=== PATIENT | male | born 1990 | race Caucasian/White ===

== ENCOUNTER 2017-11-24 09:30 | Inpatient (IN) | payer OTHER ==
[~2017-11-24] VITALS: Ht 177.8 cm; Wt 81.6 kg
[2017-11-24 09:33] VITALS: BP 134/76
[2017-11-24] MEDS ORDERED: NOHOMEMEDICATIONS (09:38)
[2017-11-24 10:16] LABS: CALCIUM 8.9 mg/dL (8.5-10.1); POTASSIUM 3.8 mmol/L (3.5-5.1)
[2017-11-24 11:09] LABS: ABSOLUTE EOSINOPHILS 0.2 thou/uL (0.0-0.7); ABSOLUTE LYMPHOCYTES 2.3 thou/uL (0.8-5.3); ABSOLUTE MONOCYTES 0.6 thou/uL (0.0-1.2); ABSOLUTE NEUTROPHILS 4.5 thou/uL (1.6-8.1); BASOPHILS 0.3 %; HEMOGLOBIN 14.6 gm/dL (14.0-18.0); LYMPHOCYTES 30.2 %; MCH 29.3 pg (26.0-34.0); MONOCYTES 8.3 %; MPV 8.2 fl. (7.2-11.1); NUCLEATED RBCS 0 /100WBC; PLATELET COUNT* 238 thou/uL (150-400); POLYS 59.2 %; RDW-CV 12.9 % (10.5-14.5); WBC 7.6 thou/uL (4.0-11.0)
[2017-11-24 12:14] VITALS: BP 136/88
[2017-11-24 19:35] VITALS: BP 139/62
--- NOTE | 2017-11-24 19:48 | NUR ---
PT ALERT AND ORIENTED. DENIES NAUSEA AND PAIN UPON ARRIVAL TO UNIT. IV PATENT. WOUND VAC ATTACHED TO LEFT ARM WITH BLACK FOAM DRESSING INTACT. SWELLING NOTED IN LEFT ARM WITH ABRASIONS TO HAND. PT ABLE TO AMBULATE WITH SBA-GAIT STEADY. RECEIVED PO MEDICATION FOR PAIN. SCDS ON BILAT. VS STABLE. HOURLY ROUNDS MAINTAINED. PT WILL USE CALL LIGHT FOR ASSISTANCE. CALL LIGHT WITHIN REACH. NURSING TO CONTINUE TO MONITOR.
[2017-11-25 01:05] VITALS: BP 125/70
[2017-11-25 04:57] LABS: HEMATOCRIT 38.2 % (42.0-52.0); HEMOGLOBIN 13.3 gm/dL (14.0-18.0); MCH 29.2 pg (26.0-34.0); MCHC 34.7 g/dL (28.0-37.0); MCV 84.1 fL (80.0-100.0); MPV 8.3 fl. (7.2-11.1); NUCLEATED RBCS 0 /100WBC; PLATELET COUNT* 229 thou/uL (150-400); RBC 4.54 mil/uL (4.50-6.00); RDW-CV 12.8 % (10.5-14.5); WBC 15.5 thou/uL (4.0-11.0)
[2017-11-25 05:04] LABS: CALCIUM 8.2 mg/dL (8.5-10.1); CREATININE 0.8 mg/dL (0.6-1.3)
[2017-11-25 05:12] VITALS: BP 132/72
[2017-11-25 06:15] LABS: ABSOLUTE BASOPHILS 0.2 thou/uL (0.0-0.2); ABSOLUTE LYMPHOCYTES 0.8 thou/uL (0.8-5.3); ABSOLUTE MONOCYTES 0.9 thou/uL (0.0-1.2); ABSOLUTE NEUTROPHILS 13.6 thou/uL (1.6-8.1)
[2017-11-25 06:16] LABS: PLATELET ESTIMATE ADEQUATE
[2017-11-25 08:00] VITALS: BP 119/71
--- NOTE | 2017-11-25 13:28 | NUR ---
PT.ALERT AND ORIENTED. 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 HE GAVE PERMISSION FOR ME TO TALK IN FRONT OF HIS FRIEND. PT.SAID HE NORMALLY LIVES IN [place], [place]. CO. IS IN [place], [place]. 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 HE SAID HE SHOULD HAVE INSURANCE THROUGH HIS CO. SOON. EXPLAINED ORDERING A WOUND VAC FOR HIM TO USE WHEN DISCHARGED. IT WOULD BE DELIVERED TO THE HOSPITAL. DISCUSSED NEEDING HOME HEALTH TO SEE HIM AT HOME FOR DRESSING CHANGES. HE CHOSE [facility]. CM WILL MAKE REFERRAL TO THEM. SPOKE WITH TRUDY/HELENE.[facility]. FAXED HER INITAL INFORMATION,FACE SHEET WITH WORK COMP INFORMATION TO [phone]. THEY CAN SEE PT.ON TUESDAY. IF DISCHARGED OVER THER WEEKEND FAX FINAL ORDERS TO [phone]. NO NEED TO CALL PER TRUDY.
[2017-11-25 13:44] VITALS: BP 119/71
--- NOTE | 2017-11-25 15:40 | NUR ---
ALERT AND ORIENTED X4. UP STAND BY ASSIST IN ROOM. IV IS PATENT AND SALINE LOCKED. PAIN BEING MANAGED WITH PO PAIN MEDICATION. DENIES NAUSEA. WOUND VAC IN PLACE. VSS ON ROOM AIR. HOURLY ROUNDS HAVE BEEN MAINTAINED THROUGHOUT SHIFT. CALL LIGHT IS WITHIN REACH. NURSING WILL CONTINUE TO MONITOR.
--- NOTE | 2017-11-25 17:21 | NUR ---
SIGNED WOUND VAC FORM. FAXED FORM,FACE SHEET, H&P,OP REPORT AND PROGRESS NOTE TO [facility]. CALL FROM [facility] WOUND VAC,STATING SHE COULD NOT GET [employer] OF WORKERS COMP REP TO AUTH WOUND VAC,SO SHE REACHED OUT TO ONE OF THEIR OTHER VENDORS THAT DO ALOT OF THEIR WORKERS COMP CASES. THEY WILL DELIVER WOUND VAC TOMORROW TO PT.S ROOM. IT IS MUCH LIKE A [facility] WOUND VAC. IT IS CALLED [facility]. [facility] FOR ANY QUESTIONS IS [phone].
--- NOTE | 2017-11-25 19:09 | NUR ---
RECIEVED REPORT FROM CHAR AT 1500. AGREE WITH PREVIOUS NURSE ASSESSMENT. PAIN WELL CONTROLLED WITH PAIN MEDS. TOLERATED DIET, NO NAUSEA AND VOMITING. CALL LIGHT WITHIN REACH, WILL CONTINUE TO MONITOR.
[2017-11-25 20:30] VITALS: BP 133/68
[2017-11-26] VITALS: BP 110/66
[2017-11-26 04:20] VITALS: BP 126/64
[2017-11-26 04:22] LABS: ABSOLUTE EOSINOPHILS 0.1 thou/uL (0.0-0.7); ABSOLUTE LYMPHOCYTES 2.2 thou/uL (0.8-5.3); ABSOLUTE MONOCYTES 0.7 thou/uL (0.0-1.2); ABSOLUTE NEUTROPHILS 4.4 thou/uL (1.6-8.1); BASOPHILS 0.2 %; EOSINOPHILS 1.4 %; HEMATOCRIT 37.8 % (42.0-52.0); HEMOGLOBIN 12.9 gm/dL (14.0-18.0); LYMPHOCYTES 30.2 %; MCV 85.3 fL (80.0-100.0); MPV 7.9 fl. (7.2-11.1); NUCLEATED RBCS 0 /100WBC; PLATELET COUNT* 224 thou/uL (150-400); POLYS 59.2 %; RBC 4.43 mil/uL (4.50-6.00); RDW-CV 13.3 % (10.5-14.5); WBC 7.4 thou/uL (4.0-11.0)
--- NOTE | 2017-11-26 06:51 | NUR ---
ASSUMED PT CARE AT 2014. NURSING ASSESSMENT COMPLETED. PT VERBALIZED PAIN THIS SHIFT. SEE EMAR FOR DOCUMENTATION. WOUND VAC TO LEFT FOREARM. HOURLY ROUNDING COMPLETED. VOICED NO OTHER CONCERNS. NEGATIVE FOR SEPSIS. CALL LIGHT WITHIN REACH.
[2017-11-26 09:00] VITALS: BP 136/69
[2017-11-26 16:00] VITALS: BP 139/75
--- NOTE | 2017-11-26 18:21 | NUR ---
PAITENT REMAINED ALERT AND ORIENTED X'S 4. VITAL SIGNS AND SPO2 STABLE. PAIN WELL CONTROLLED WITH PAIN MEDS. IV CLEAN, FLUIDS INFUSING. LEFT ARM STILL SWOLLEN AND RED BUT CLEAN, DRY, AND INTACT. VOIDED AND PASSED BM WITHOUT ISSUE. TOLERATED DIET, NO NAUSEA AND VOMITING. CONSENT FOR PROCEDURE TOMORROW SIGNED AND PLACED IN CHART. COMPLETED HOURLY ROUNDING. CALL LIGHT WITHIN REACH. WILL CONTINUE TO MONITOR.
[2017-11-26 21:30] VITALS: BP 130/93
[2017-11-27 00:15] VITALS: BP 126/67
[2017-11-27 04:20] VITALS: BP 122/65
[2017-11-27 04:49] LABS: ABSOLUTE EOSINOPHILS 0.2 thou/uL (0.0-0.7); ABSOLUTE LYMPHOCYTES 2.2 thou/uL (0.8-5.3); ABSOLUTE MONOCYTES 0.7 thou/uL (0.0-1.2); ABSOLUTE NEUTROPHILS 4.1 thou/uL (1.6-8.1); BASOPHILS 0.4 %; EOSINOPHILS 2.9 %; HEMOGLOBIN 13.1 gm/dL (14.0-18.0); LYMPHOCYTES 30.2 %; MCH 29.1 pg (26.0-34.0); MCHC 34.6 g/dL (28.0-37.0); MCV 84.2 fL (80.0-100.0); MONOCYTES 10.2 %; NUCLEATED RBCS 0 /100WBC; PLATELET COUNT* 226 thou/uL (150-400); POLYS 56.3 %; RBC 4.51 mil/uL (4.50-6.00); WBC 7.3 thou/uL (4.0-11.0)
--- NOTE | 2017-11-27 07:04 | NUR ---
PATIENT HAS SLEPT WELL THROUGHOUT THE NIGHT WITHOUT ANY ISSUES. PAIN WELL CONTROLLED. MEDICATION GIVEN ORDERED AND CHARTED. VSS ON RA. DRESSING TO LEFT ARM IS C/D/I AND WOUND VAC IN PLACE. HOURLY ROUNDS MADE. WILL CONTINUE WITH PLAN OF CARE AND NURSING TO MONITOR.
[2017-11-27 07:30] VITALS: BP 119/71; BP 140/65
[2017-11-27 08:26] VITALS: BP 122/65
[2017-11-27] MEDS ORDERED: COLACE100 MG PO (16:01)
[2017-11-27] MEDS ORDERED: NORCO 5-325 TA1 EACH PO (16:02)
[2017-11-27] MEDS ORDERED: AUGMENTIN125 MG/53 PO (16:04)
--- NOTE | 2017-11-27 16:32 | NUR ---
PATIENT LEFT UNIT AT 1630 AMBULATORY. IV DC'D. EDUCATED PATIENT ON NEW MED SCRIPTS AND DISCHARGE INSTRUCTIONS. PATIENT VERBALIZED UNDERSTANDING. ALL BELONGINGS LEFT.
[2017-11-27 16:48] VITALS: BP 119/71
--- NOTE | 2017-11-28 09:06 | NUR ---
FAXED DISCHARGE SUMMARY AND OP REPORT FROM 11/27 TO NURSING INTAKE AT [facility] [phone]. THEY CALLED AND HAD NOT RECEIVED DISCHARGE ORDERS FROM 11/27.
--- NOTE | 2017-12-01 07:43 | OP ---
[address] [address] OPERATIVE REPORT Name: CHELSEA CRISOSTOMO Room: [address] IN M.R.#: [id number] Admission: 11/25/17 Attend Phys: Jazmyne Mckeon DO Discharge: 11/27/17 Date of : 88 Report #: [id number] THIS REPORT FOR: //name// CC: Jazmyne Mckeon [facility] physician/PCP DICTATED BY: Shaq Ma DO PREOPERATIVE DIAGNOSIS: Left forearm laceration. POSTOPERATIVE DIAGNOSIS: Left forearm laceration. SURGEON: Jazmyne Mckeon DO COSURGEON: Dr. Christian Ma, PGY4. ASSISTANTS: Bg Brenner, PGY-1. OPERATION: Left forearm wound irrigation with fasciotomy and wound VAC application. ANESTHESIA: General and local. ESTIMATED BLOOD LOSS: 5 mL. SPECIMENS: None. COMPLICATIONS: None. 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 The power shovel operator shot back him and caused an approximately 4 cm wound to the posterior aspect of his left forearm just distal to the elbow. He was able to move his upper extremity in the ER, but it was painful. The patient did undergo an upper extremity CTA to ensure there was no vascular injury and there was no evidence of any type of arterial injury that was identified. The patient did have significant amount of subcutaneous intramuscular emphysema along the dorsum of the proximal forearm that extended towards the radial aspect of the forearm with a large laceration and there was some trace amount of gas within the elbow joint. We recommended the patient undergo general anesthesia to have his left forearm wound irrigated and wound VAC placed. A complete description of procedure was reviewed in detail with the patient. All risks, benefits and complications were discussed at the time of surgery and he voiced complete understanding and wished to proceed. DESCRIPTION OF PROCEDURE: The patient was taken to the operating room and laid in supine position. He had SCDs placed on [place] [address] OPERATIVE REPORT Name: CHELSEA CRISOSTOMO Room: [address] [place] ..#: [id number] Admission: 11/25/17 Attend Phys: Jazmyne Mckeon DO Discharge: 11/27/17 Date of : 88 Report #: [id number] his David wrap placed across his lap. The patient received 2 g Ancef while he was in the ER, but we elected to add more broad spectrum coverage with Zosyn, so we gave him 3.375 grams of Zosyn upon arrival to the OR. All lines were placed by anesthesia. The patient's left arm was placed out and prepped and draped in a standard sterile fashion. The patient was sedated and an LMA placed by anesthesia without difficulty. A timeout was performed to correctly identify the patient and procedure. We thoroughly inspected the wound to ensure there was no debris present and none was obviously seen. We investigated the fascial compartment, there was noted to be some notable tension, so these fascial compartments which were previously opened secondary to the injury were extended inferiorly and superiorly along the anterior aspect of the forearm. This provided significant amount of decompression and release of the tension that was presented with the forearm. Then, using copious amounts of irrigation with bacitracin, we irrigated the wound thoroughly. The patient did have some degloving of the skin along the lateral aspect of his wound. All of these areas were thoroughly irrigated with the bacitracin saline solution approximately 2 liters. The muscle was tested with electrocautery to ensure that it was viable and did appear to be so. There was no gross bleeding that was occurring and there was no obvious other vascular injuries that were present. After we thoroughly irrigated the wound, we again inspected it for hemostasis and it did appear to be hemostatic. We then placed a wound VAC over the area using a silver foam and we achieved good seal with the wound VAC and the rest of the patient's forearm was inspected and he had some mild abrasions that were cleaned and bacitracin was applied. We did inject the area at the start of the case with some lidocaine local anesthetic. The patient was allowed to awaken in the operating room and was transferred to the PACU in stable condition. All counts were correct times 2 at the end of the procedure. Dr. Mckeon was present and scrubbed for the entirety of the procedure. <ELECTRONICALLY SIGNED> By: Jazmyne Mckeon DO 12/01/17 0743 [id number] Mckeon DO /wilfrido
--- NOTE | 2018-01-20 15:07 | OP ---
[address] [address] OPERATIVE REPORT Name: CHELSEA CRISOSTOMO Room: [address]#: [id number] Admission: 11/25/17 Attend Phys: Jazmyne Mckeon DO Discharge: 11/27/17 Date of : 88 Report #: [id number] THIS REPORT FOR: //name// CC: Jazmyne Mckeon [facility] physician/PCP DICTATED BY: Shaq Ma DO DATE OF SERVICE: 11/27/2017 PREOPERATIVE DIAGNOSIS: Left forearm laceration. POSTOPERATIVE DIAGNOSIS: Left forearm laceration. SURGEON: Jalil Wallace DO. COSURGEON: Christian Ma, PGY4. RESIDENT CARE AIDE: None. OPERATION PERFORMED: Left forearm wound irrigation and wound VAC exchange with partial closure. ANESTHESIA: Monitored anesthesia care with LMA. ANESTHESIA TYPE: General with LMA. ESTIMATED BLOOD LOSS: 5 mL. SPECIMEN REMOVED: None. COMPLICATIONS: None. COMMENTS: Placed 3 vertical mattress 2-0 nylon sutures along the edges of the wound for partial reapproximation. Irrigated the wound copiously with 3 liters of normal saline and removed the previously placed foam and placed a new silver GranuFoam within the wound bed. HISTORY OF PRESENT ILLNESS: The patient is a pleasant 27-year-old male who was admitted to the hospital under Surgery Service after having laceration to his left forearm while working approximately 3 days ago. At this time, the patient did have a significant laceration that was copiously irrigated and had a wound VAC placed on the same day. He was admitted to the hospital and given IV antibiotics with a plan to exchange the wound VAC today. The patient has done rather well and edema to his left forearm has been rather minimal. His pain has been decently controlled and we exchanged his wound [place] [id number] OPERATIVE REPORT Name: CHELSEA CRISOSTOMO Room: [address]#: [id number] Admission: 11/25/17 Attend Phys: Jazmyne Mckeon DO Discharge: 11/27/17 Date of : 88 Report #: [id number] wound VAC. All descriptions of the procedure were reviewed in detail with the patient. All risks, benefits, complications were also discussed at bedside this morning and the patient voiced clear understanding and wished to proceed. DESCRIPTION OF PROCEDURE: After the appropriate consents were obtained, the patient was taken to the operating room, laid in supine position. He had SCDs placed on bilateral lower extremities. A safety sharp placed across his lab. All lines were placed by Anesthesia. His left arm was placed on armboard that was out and his right arm was placed tucked at his right side. The patient was then sedated and LMA placed by Anesthesia without difficulty. He was then positioned with the left arm out on an armboard and his left arm was prepped and draped in a standard sterile fashion. The patient was given IV antibiotics approximately 06:00 this morning, so none were given in the operative time. A timeout was performed to correctly identify the patient and procedure. We started by removing the foam that was placed previously, which appeared to be intact and the wound bed appeared significantly clean with healthy tissue beneath it. There were 3 pieces of foam, they were removed in toto. The wound cavity was then explored and did not appear to have any type or signs of infection and no purulent drainage. We then copiously irrigated the wound with 3 liters of normal saline and decided to reapproximate the wound partially specifically at the edges of the wound. We placed 3 separate vertical mattress sutures for partial reapproximation and then placed a fresh piece of GranuFoam within the wound. The wound measured today at 7 x 2.5 x 1.5 cm and displayed a healthy viable muscle and tissue. We used Mastisol around the wound to actively enhance our adhesion with our dressings. We then placed a dressing over top the foam and then cut out a portion over top the Silver foam and placed a yakutat patch over this and then placed our Trac Pad with good suction and seal. We connected it to the patient's portable wound VAC and it appeared to be functioning properly. The patient's left arm was then cleaned and dried adequately and we allowed him to awake in the operating room. All counts were correct x 2 at the end of procedure. The patient tolerated the procedure very well. We will continue with IV antibiotics for today and if the patient has correct services set up as an outpatient, we could possibly discharge home later today if not likely tomorrow. Dr. Wallace was present and scrubbed the entirety of the procedure. <ELECTRONICALLY SIGNED> By: Jalil Wallace DO 01/20/18 1507 [id number] Wallace DO /nt
== END 2017-11-27 18:19 | disposition home or self-care (01) | DRG 982 ==
LOC: M.ERS 09:30 → M.SUR 09:30 → M.TBA-ER 12:07 → M.ORTHSURG 12:07 → M.TBA 12:08 → M.SUR 12:14 → M.ORTHSURG 14:35
PROVIDERS: Emergency Medicine Emergency Medical Services; Surgery; ADMIT Surgery
PROC: 0KNB0ZZ Release Left Lower Arm and Wrist Muscle, Open Approach (ICD-10-PCS; principal; 2017-11-24)
PROC: 2W0DX6Z Change Pressure Dressing on Left Lower Arm (ICD-10-PCS; 2017-11-27)
DX: S51.812A Laceration without foreign body of left forearm, initial encounter (principal); T79.7XXA Traumatic subcutaneous emphysema, initial encounter; F17.210 Nicotine dependence, cigarettes, uncomplicated; Y33.XXXA Other specified events, undetermined intent, initial encounter; Y93.89 Activity, other specified; Y92.89 Other specified places as the place of occurrence of the external cause; Y99.8 Other external cause status